=== PATIENT | female | born 1945 | race Caucasian/White ===

== ENCOUNTER 2017-02-18 20:29 | Emergency (ER) | payer MEDICARE ==
[2017-02-18] MEDS ORDERED: Sodium Chloride 0.9% 1000 ML 1,000 ML IV STA ×2 (20:39→21:21)
[2017-02-18] MEDS ORDERED: ROCEPHIN 1 Gm-D5w 50 ml Bag** 1 G/50 ML IVPB IV STA (20:39)
--- NOTE | 2017-02-18 20:43 | ERPHSYRPT ---
- History of Present Illness Time Seen by Provider: 02/18/17 20:29 Source: EMS Exam Limitations: clinical condition Physician History: PT WAS BROUGHT IN BY EMS AND HAS HAD FEVER AND VOMITING. PT WILL NOT ANSWER ANY OF MY QUESTIONS. Allergies/Adverse Reactions: daptomycin [From Cubicin] Allergy (Verified 02/18/17 20:33) Home Medications: Aspirin EC 325 mg [Ecotrin 325 MG] 325 mg PO DAILY 05/28/14 [History] Bumetanide 1 mg [Bumex 1 mg] 1 mg PO DAILY 05/28/14 [History] Citalopram Hydrobromide 20 mg* [ceLEXa 20 MG] 20 mg PO DAILY 05/28/14 [ History] Clopidogrel Bisulfate 75 mg [PLAVIX 75 MG Tablet] 75 mg PO DAILY 05/28/14 [History] Lovastatin 20 mg PO HS 05/28/14 [History] Alprazolam 0.25 mg [xanAX 0.25 MG] 0.25 mg PO BIDPRN PRN 07/13/15 [History ] Lisinopril 5 mg [Zestril 5 MG] 2.5 mg PO DAILY 07/13/15 [History] Gabapentin 400 mg [Neurontin 400 MG] 300 mg PO TID 11/17/15 [History] Insulin Detemir [Levemir] 50 unit SQ HS 11/17/15 [History] Hydrocodone/APAP 10/325 mg [[place] 10/325 MG Tablet] 1 tab PO Q6H PRN PRN 09/27/16 [History] Oxymorphone HCl [Opana ER] 10 mg PO Q12H 09/27/16 [History] Hx Tetanus, Diphtheria Vaccination/Date Given: Yes Hx Influenza Vaccination/Date Given: Yes Hx Pneumococcal Vaccination/Date Given: No - Review of Systems All Other Systems: Unable due to condition (PT WILL NOT ANSWER ANY OF MY QUESTIONS) - Past Medical History Pertinent Past Medical History: Yes Neurological History: No Pertinent History ENT History: Other Cardiac History: High Cholesterol, Hypertension, Myocardial Infarction (NM) Respiratory History: CHF Endocrine Medical History: Diabetes Type II Musculoskeletal History: Other GI Medical History: No Pertinent History History: No Pertinent History Psycho-Social History: Anxiety Female Reproductive Disorders: No Pertinent History Other Medical History: both eye implants - Past Surgical History Past Surgical History: Yes Neuro Surgical History: No Pertinent History Cardiac: Cardiac Stent Respiratory: No Pertinent History Gastrointestinal: Cholecystectomy Genitourinary: No Pertinent History Musculoskeletal: Orthopedic Surgery Female Surgical History: No Pertinent History Other Surgical History: EYE IMPLANTS, 2 toes removed from left foot - Social History Smoking Status: Never smoker Exposure to second hand smoke: No Drug Use: none Patient Lives Alone: No - Nursing Vital Signs Nursing Vital Signs: Initial Vital Signs Temperature 102.8 F Temperature Source Rectal Pulse Rate 115 Respiratory Rate 24 Blood Pressure [Right Arm] 127/66 Pain Intensity 7 - Physical Exam General Appearance: lethargy Eye Exam: other (EOMI) Ears, Nose, Throat Exam: TMs normal, dry mucous membranes Neck Exam: normal inspection Respiratory Exam: other (RALES OVER RIGHT POSTERIOR SOW) Cardiovascular Exam: normal heart sounds Gastrointestinal/Abdomen Exam: soft, normal bowel sounds Back Exam: normal inspection Extremity Exam: other (AMPUTATION OF LEFT 1ST & 2ND TOES) Neurologic Exam: other (LETHARGIC) Skin Exam: decubitus (DECUBITUS ULCER ON LATERAL PLANTAR ASPECT OF RIGHT FOOT.) - Course Nursing assessment & vital signs reviewed: Yes - CT Exams Head CT Interpretation: Tele-radiologist Report (VERY MILD SENESCENT CHANGES. NO ACUTE ABNORMALITY OR SIGNIFICANT INTERVAL CHANGE IS SEEN.) Ordered Tests: Active Orders 24 hr Category Date Time Status Newspaper Or Periodical Editor STAT Care 02/18/17 20:38 Active Catheter-[place] STAT Care 02/18/17 20:37 Active EKG-ER Only STAT Care 02/18/17 20:39 Active Pulse Oximetry (ED) STAT Care 02/18/17 20:38 Active Rectal Temperature STAT Care 02/18/17 21:03 Active Saline Lock STAT Care 02/18/17 20:38 Active CHEST 1 VIEW (PORTABLE) Stat Exams 02/18/17 20:38 Taken HEAD WITHOUT CONTRAST [CT] Stat Exams 02/18/17 21:21 Taken AMYLASE Stat Lab 02/18/17 20:58 Completed BLOOD CULTURE Stat Lab 02/18/17 20:56 Received CBC W DIFF Stat Lab 02/18/17 20:56 Completed CMP Stat Lab 02/18/17 20:58 Completed CULTURE, THROAT Stat Lab 02/18/17 21:00 Received CULTURE,URINE Stat Lab 02/18/17 20:59 Received D-DIMER QUANTITATION Stat Lab 02/18/17 20:58 Completed LIPASE Stat Lab 02/18/17 20:58 Completed Lactic Acid Stat Lab 02/18/17 20:38 Completed Lactic Acid Stat Lab 02/18/17 22:07 Completed Lactic Acid Stat Lab 02/18/17 22:38 Ordered Manual Differential NC Stat Lab 02/18/17 20:56 Completed [place] Screen Stat Lab 02/18/17 20:58 Completed PROTIME WITH INR Stat Lab 02/18/17 20:58 Completed PTT Stat Lab 02/18/17 20:58 Completed STREP SCREEN-BETA A Stat Lab 02/18/17 21:00 Completed TROPONIN Stat Lab 02/18/17 20:58 Completed UA W/ MICROSCOPIC Stat Lab 02/18/17 20:57 Completed Medication Summary Generic Name Dose Route Start Last Admin Trade Name Freq PRN Reason Stop Dose Admin Sodium Chloride 1,000 mls @ 999 mls/hr 02/18/17 22:08 02/18/17 22:28 Sodium Chloride 0.9% 1000 Ml IV 02/18/17 23:08 999 mls/hr .Q1H1M STA Administration Discontinued Medications Generic Name Dose Route Start Last Admin Trade Name Freq PRN Reason Stop Dose Admin Acetaminophen 650 mg 02/18/17 21:03 02/18/17 21:00 [place] 650 Mg OH 02/18/17 21:04 650 mg STAT STA Administration Acetaminophen Confirm 02/18/17 21:04 [place] 650 Mg Administered 02/18/17 21:05 Dose 650 mg .ROUTE .STK-MED ONE Ceftriaxone Sodium/Dextrose 1 g in 50 mls @ 100 mls/hr 02/18/17 20:39 21:00 Rocephin 1 Gm-D5w 50 Ml Bag IV 02/18/17 21:08 100 mls/hr STAT STA Administration Sodium Chloride 1,000 mls @ 999 mls/hr 02/18/17 20:39 02/18/17 21:00 Sodium Chloride 0.9% 1000 Ml IV 02/18/17 21:39 999 mls/hr .Q1H1M STA Administration Sodium Chloride Confirm 02/18/17 21:04 Sodium Chloride 0.9% 1000 Ml Administered 02/18/17 21:05 Dose 1,000 mls @ ud .ROUTE .STK-MED ONE Ceftriaxone Sodium/Dextrose Confirm 02/18/17 21:04 Rocephin 1 Gm-D5w 50 Ml Bag Administered 02/18/17 21:05 Dose 1 g in 50 mls @ ud IV .STK-MED ONE Sodium Chloride 1,000 mls @ 999 mls/hr 02/18/17 21:21 02/18/17 21:30 Sodium Chloride 0.9% 1000 Ml IV 02/18/17 22:21 999 mls/hr .Q1H1M STA Administration Sodium Chloride Confirm 02/18/17 21:24 Sodium Chloride 0.9% 1000 Ml Administered 02/18/17 21:25 Dose 1,000 mls @ ud .ROUTE .STK-MED ONE Sodium Chloride Confirm 02/18/17 22:21 Sodium Chloride 0.9% 1000 Ml Administered 02/18/17 22:22 Dose 1,000 mls @ ud .ROUTE .STK-MED ONE Sodium Chloride Confirm 02/18/17 22:28 Sodium Chloride 0.9% 1000 Ml Administered 02/18/17 22:29 Dose 1,000 mls @ ud .ROUTE .STK-MED ONE Insulin Human Regular 10 unit 02/18/17 21:54 02/18/17 22:22 Novolin R IV 02/18/17 21:55 10 unit STAT ONE Administration Insulin Human Regular Confirm 02/18/17 22:21 Novolin R Administered 02/18/17 22:22 Dose 10 unit .ROUTE .STK-MED ONE Promethazine HCl 12.5 mg 02/18/17 21:30 02/18/17 22:22 Phenergan 25 Mg Inj IV 02/18/17 21:31 25 mg STAT ONE Administration Promethazine HCl Confirm 02/18/17 22:16 Phenergan 25 Mg Inj Administered 02/18/17 22:17 Dose 25 mg .ROUTE .STK-MED ONE Lab/Rad Data: Laboratory Result Diagrams 02/18/17 20:56 02/18/17 20:58 Laboratory Results 02/18/17 02/18/17 02/18/17 Range/Units 22:07 21:00 20:58 WBC (4.0-10.5) K/mm3 RBC (4.1-5.4) M/mm3 Hgb (12.0-16.0) gm/dl Hct (35-47) % MCV (78-100) fl MCH (26-32) pg MCHC (32-36) g/dl RDW (11.5-14.0) % Plt Count (150-450) K/mm3 MPV (6-9.5) fl Segmented Neutrophils (36.0-66.0) % Band Neutrophils (0.0-2.0) % Lymphocytes (Manual) (24-44) % Monocytes (Manual) (0.0-12.0) % Differential Comment Platelet Estimate (NORMAL) INR (0.8-3.0) APTT (25.3-37.0) SECONDS D-Dimer (0.00-500.00) ng/mL Sodium (136-145) mEq/L Potassium (3.5-5.1) mEq/L Chloride (98-107) mEq/L Carbon Dioxide (21-32) mEq/L Anion Gap (5-15) MEQ/L BUN (9-20) mg/dL Creatinine (0.55-1.30) mg/dl Estimated GFR ML/MIN Glucose (70-110) MG/DL Lactic Acid 5.4 H (0.4-2.0) Calcium (8.5-10.1) mg/dL Total Bilirubin (0.2-1.0) mg/dL AST (15-37) U/L ALT (12-78) U/L Alkaline Phosphatase (46-116) U/L Troponin I (0.000-0.056) ng/ml Serum Total Protein (6.4-8.2) gm/dL Albumin (3.4-5.0) g/dL Amylase (25-115) U/L Lipase (73-393) U/L Ur Collection Type Urine Color (YELLOW) Urine Appearance (CLEAR) Urine pH (5-6) Ur Specific [place] (1.005-1.025) Urine Protein (Negative) Urine Glucose (UA) (NEGATIVE) mg/dL Urine Ketones (NEGATIVE) Urine Nitrite (NEGATIVE) Urine Bilirubin (NEGATIVE) Urine Urobilinogen (0-1) mg/dL Urine WBC (Auto) (NEGATIVE) Urine RBC (Auto) (0-5) [place]/ul Urine Microscopic RBC (0-2) /HPF Urine Microscopic WBC (0-5) /HPF Ur Epithelial Cells (FEW) /HPF Amorphous Crystals (NEGATIVE) /HPF Urine Bacteria (NEGATIVE) /HPF Urine Mucus (NEGATIVE) /HPF Monoscreen NEGATIVE (Negative) Streptococcus Screen NEGATIVE (Negative) Specimen Received 02/18/17 02/18/17 02/18/17 Range/Units 20:58 20:58 20:58 WBC (4.0-10.5) K/mm3 RBC (4.1-5.4) M/mm3 Hgb (12.0-16.0) gm/dl Hct (35-47) % MCV (78-100) fl MCH (26-32) pg MCHC (32-36) g/dl RDW (11.5-14.0) % Plt Count (150-450) K/mm3 MPV (6-9.5) fl Segmented Neutrophils (36.0-66.0) % Band Neutrophils (0.0-2.0) % Lymphocytes (Manual) (24-44) % Monocytes (Manual) (0.0-12.0) % Differential Comment Platelet Estimate (NORMAL) INR 1.72 (0.8-3.0) APTT 34.9 (25.3-37.0) SECONDS D-Dimer 6663.71 H* (0.00-500.00) ng/mL Sodium 128 L (136-145) mEq/L Potassium 4.5 (3.5-5.1) mEq/L Chloride 90 L (98-107) mEq/L Carbon Dioxide 18.0 L (21-32) mEq/L Anion Gap 24.1 H (5-15) MEQ/L BUN 73 H (9-20) mg/dL Creatinine 4.13 H (0.55-1.30) mg/dl Estimated GFR 11 ML/MIN Glucose 602 H* (70-110) MG/DL Lactic Acid (0.4-2.0) Calcium 9.4 (8.5-10.1) mg/dL Total Bilirubin 2.70 H (0.2-1.0) mg/dL AST 1583 H (15-37) U/L ALT 945 H (12-78) U/L Alkaline Phosphatase 128 H (46-116) U/L Troponin I 28.034 H* (0.000-0.056) ng/ml Serum Total Protein 7.7 (6.4-8.2) gm/dL Albumin 2.8 L (3.4-5.0) g/dL Amylase 146 H (25-115) U/L Lipase 82 (73-393) U/L Ur Collection Type Urine Color (YELLOW) Urine Appearance (CLEAR) Urine pH (5-6) Ur Specific [place] (1.005-1.025) Urine Protein (Negative) Urine Glucose (UA) (NEGATIVE) mg/dL Urine Ketones (NEGATIVE) Urine Nitrite (NEGATIVE) Urine Bilirubin (NEGATIVE) Urine Urobilinogen (0-1) mg/dL Urine WBC (Auto) (NEGATIVE) Urine RBC (Auto) (0-5) [place]/ul Urine Microscopic RBC (0-2) /HPF Urine Microscopic WBC (0-5) /HPF Ur Epithelial Cells (FEW) /HPF Amorphous Crystals (NEGATIVE) /HPF Urine Bacteria (NEGATIVE) /HPF Urine Mucus (NEGATIVE) /HPF Monoscreen (Negative) Streptococcus Screen (Negative) Specimen Received 02/18/17 02/18/17 02/18/17 Range/Units 20:57 20:56 20:38 WBC 26.7 H* (4.0-10.5) K/mm3 RBC 3.83 L (4.1-5.4) M/mm3 Hgb 10.5 L (12.0-16.0) gm/dl Hct 32.8 L (35-47) % MCV 85.6 (78-100) fl MCH 27.4 (26-32) pg MCHC 32.0 (32-36) g/dl RDW 15.1 H (11.5-14.0) % Plt Count 210 (150-450) K/mm3 MPV 11.3 H (6-9.5) fl Segmented Neutrophils 86 H (36.0-66.0) % Band Neutrophils 5 H (0.0-2.0) % Lymphocytes (Manual) 5 L (24-44) % Monocytes (Manual) 4 (0.0-12.0) % Differential Comment NORMAL Platelet Estimate NORMAL (NORMAL) INR (0.8-3.0) APTT (25.3-37.0) SECONDS D-Dimer (0.00-500.00) ng/mL Sodium (136-145) mEq/L Potassium (3.5-5.1) mEq/L Chloride (98-107) mEq/L Carbon Dioxide (21-32) mEq/L Anion Gap (5-15) MEQ/L BUN (9-20) mg/dL Creatinine (0.55-1.30) mg/dl Estimated GFR ML/MIN Glucose (70-110) MG/DL Lactic Acid 7.3 H (0.4-2.0) Calcium (8.5-10.1) mg/dL Total Bilirubin (0.2-1.0) mg/dL AST (15-37) U/L ALT (12-78) U/L Alkaline Phosphatase (46-116) U/L Troponin I (0.000-0.056) ng/ml Serum Total Protein (6.4-8.2) gm/dL Albumin (3.4-5.0) g/dL Amylase (25-115) U/L Lipase (73-393) U/L Ur Collection Type CATH Urine Color YELLOW (YELLOW) Urine Appearance CLOUDY (CLEAR) Urine pH 5.0 (5-6) Ur Specific [place] 1.025 (1.005-1.025) Urine Protein >=300 (Negative) Urine Glucose (UA) >=1000 (NEGATIVE) mg/dL Urine Ketones SMALL-15 (NEGATIVE) Urine Nitrite NEGATIVE (NEGATIVE) Urine Bilirubin NEGATIVE (NEGATIVE) Urine Urobilinogen 0.2 (0-1) mg/dL Urine WBC (Auto) NEGATIVE (NEGATIVE) Urine RBC (Auto) MODERATE (0-5) [place] Urine Microscopic RBC 2-5 (0-2) /HPF Urine Microscopic WBC 25-50 (0-5) /HPF Ur Epithelial Cells MODERATE (FEW) /HPF Amorphous Crystals MODERATE (NEGATIVE) /HPF Urine Bacteria PACKED (NEGATIVE) /HPF Urine Mucus MODERATE (NEGATIVE) /HPF Monoscreen (Negative) Streptococcus Screen (Negative) Specimen Received 02/18/172049 - Progress Progress Note: 02/18/17 21:27 ADDITIONAL HX BY STEP-DAUGHTER: VOMITING AND DIARRHEA 2 DAYS AGO, UNSURE OF TODAY. Discussed with : Other (SPOKE WITH DR TOPETE(6214) WHO ACCEPTED PT FOR TRANSFER TO [facility] A DIRECT ADMISSION.) - Departure Time of Disposition: 22:45 Departure Disposition: Transfer ([facility]) Clinical Impression: AMS, UTI, LEUKOCYTOSIS R/O SEPSIS, VOMITING, DM, HTN, ANXIETY, DECUITUS ULCER RIGHT FOOT, ELEVATED D-DIMER, ELEVATED LFT'S, RENAL FAILURE, ELEVATED TROPONIN Condition: Serious Critical Care Time: Yes Critical Care Time(excluding separately billable procedures): 30-74 minutes Referrals: CARISSA DODSON MD [Primary Care Provider] -
[2017-02-18] MEDS ORDERED: FEVERALL 650 MG PR STA (21:03)
[2017-02-18 21:04] LABS: Lactic Acid 7.3 (0.4-2.0)
[2017-02-18 21:04] LABS: Mean Cell Volume 85.6 fl (78-100); Mean Corpuscular Hemoglobin 27.4 pg (26-32); Mean Platelet Volume 11.3 fl (6-9.5); Platelet Count 210 K/mm3 (150-450); Red Blood Count 3.83 M/mm3 (4.1-5.4); Red Cell Distribution Width 15.1 % (11.5-14.0)
[2017-02-18] MEDS ORDERED: FEVERALL 650 MG ONE (21:04)
[2017-02-18] MEDS ORDERED: Sodium Chloride 0.9% 1000 ML 1,000 ML ONE ×3 (21:04→22:21)
[2017-02-18] MEDS ORDERED: ROCEPHIN 1 Gm-D5w 50 ml Bag** 1 G/50 ML IVPB IV ONE (21:04)
[2017-02-18 21:10] LABS: White Blood Count 26.7 K/mm3 (4.0-10.5)
[2017-02-18 21:20] LABS: Bacteria PACKED /HPF (NEGATIVE); COMPLETE URINE MICROSCOPIC? YES; Collection Type CATH; Epithelial Cells MODERATE /HPF (FEW); Mucus MODERATE /HPF (NEGATIVE); WBC 25-50 /HPF (0-5)
[2017-02-18 21:30] LABS: INR 1.72 (0.8-3.0); PROTIME 19.5 SECONDS (9.95-12.35)
[2017-02-18] MEDS ORDERED: Phenergan 25 MG INJ IV ONE (21:30)
[2017-02-18 21:31] LABS: ALBUMIN 2.8 g/dL (3.4-5.0); ANION GAP 24.1 MEQ/L (5-15); BILIRUBIN,TOTAL 2.7 mg/dL (0.2-1.0); Potassium 4.5 mEq/L (3.5-5.1); Total Protein 7.7 gm/dL (6.4-8.2)
[2017-02-18 21:32] LABS: PTT 34.9 SECONDS (25.3-37.0)
[2017-02-18 21:49] LABS: TROPONIN 28.034 ng/ml (0.000-0.056)
[2017-02-18] MEDS ORDERED: NovoLIN R IV ONE (21:54)
[2017-02-18 22:03] LABS: BAND 5 % (0.0-2.0); Platelet Estimate NORMAL (NORMAL); Total Cells Counted 100
[2017-02-18] MEDS ORDERED: Phenergan 25 MG INJ ONE (22:16)
[2017-02-18] MEDS ORDERED: NovoLIN R ONE (22:21)
[2017-02-18] MEDS: Sodium Chloride 0.9% 1000 ML 1,000 ML IV STA ×2 (22:22→22:28)
[2017-02-18 22:24] VITALS: O2SAT 99
[2017-02-18] MEDS ORDERED: Sodium Chloride 0.9% 1000 ML 0 ML ONE (22:28)
[2017-02-18] MEDS ORDERED: ENOXAPARIN SODIUM SQ STA (22:45)
[2017-02-18] MEDS ORDERED: ENOXAPARIN SODIUM SQ ONE (22:51)
--- NOTE | 2017-02-18 23:12 | XRAY ---
Indication: Altered mental status. Fever. Possible sepsis. Comparison: July 13, 2015. Portable chest underinflated accentuating the cardiopulmonary structures. Right hemidiaphragm elevation. No focal infiltrate, consolidation, or large effusion. New left-sided dual lead pacemaker. Bony thorax intact again with mild osteopenia and degenerative changes. Impression: Nonacute underinflated chest.
[2017-02-18 23:13] VITALS: BP 114/55; PULSE 98
--- NOTE | 2017-02-18 23:22 | XRAY ---
Indication: Altered mental status. Sepsis. Multiple contiguous axial images obtained through the head without contrast. Comparison: February 19, 2015. Stable age-appropriate global atrophy and minimal periventricular degenerative micro-ischemia. No acute intracranial hemorrhage, abnormal extra-axial fluid collection, or mass effect. Fourth ventricle is midline. Bony calvarium intact. Visualized paranasal sinuses and mastoid air cells are clear. Impression: Stable nonacute senile brain. Comment: Preliminary interpretation was made by [facility]. No discrepancy. CTDI 59.64
== END 2017-02-18 23:14 | disposition short-term general hospital (02) ==
LOC: ED 20:29
DX: R41.82 Altered mental status, unspecified (principal); N39.0 Urinary tract infection, site not specified; D72.829 Elevated white blood cell count, unspecified; R11.10 Vomiting, unspecified; E11.9 Type 2 diabetes mellitus without complications; I10 Essential (primary) hypertension; F41.9 Anxiety disorder, unspecified; L89.899 Pressure ulcer of other site, unspecified stage; R79.1 Abnormal coagulation profile; R79.89 Other specified abnormal findings of blood chemistry; N19 Unspecified kidney failure; R19.7 Diarrhea, unspecified; Z79.899 Other long term (current) drug therapy; E78.00 Pure hypercholesterolemia, unspecified; I25.2 Old myocardial infarction; I50.9 Heart failure, unspecified
CPT/HCPCS: 36415; 51702; 70450; 71010; 80053; 81000; 82150; 82962; 83605; 83690; 84484; 85025; 85379; 85610; 85730; 86308; 87040; 87070; 87077; 87086; 87186; 87430; 93005; 93041; 96360; 96361; 96365; 96372; 96374; 96375; 99285; J0696; J1650; J2550; A9270-GY